=== PATIENT | male | born 1995 | race Hispanic/Latino ===

== ENCOUNTER 2025-01-09 09:43 | Emergency (ER) | payer OTHER, SELFPAY ==
[2025-01-09] MEDS ORDERED: MECLIZINE HCL 12.5 MG TAB ONE (10:43)
--- NOTE | 2025-01-09 13:36 | RAD REPORT ---
EXAM: CT Head Brain Wo Cont HISTORY: DIZZINESS COMPARISON: None TECHNIQUE: Multiple contiguous axial images were obtained for a CT of the brain without contrast. Sag ittal and coronal reformats were performed. One or more of the following dose reduction techniques were used: Automated exposure control, adjus tment of the mA and kV according to patient size, and iterative reconstruction. Unless otherwise specified, incidental findings do not require dedicated imaging follow-up. FINDINGS: No evidence of hydrocephalus, intracranial hemorrhage, or extra-axial fluid collection. The brain is normal in morphology. The calvarium is intact. The visualized paranasal sinuses and mastoid air cells are essentially clear . IMPRESSION: No evidence of acute intracranial abnormality.
[2025-01-09 13:40] LABS: Absolute Lymphocytes (CBC) 1.7 K/uL (0.7-4.9); Hematocrit 47.3 % (39.6-49.0); Hemoglobin 15.9 g/dL (13.6-17.9); MCH 28.4 pg (27.0-35.0); MCHC 33.5 g/dL (32.0-36.0); MCV 84.9 fL (80-100); MPV 8.4 fL (7.6-11.3); Nucleated RBC Absolute Count 0.0 (0-0); Nucleated Red Blood Cells % 0.1 % (0-0); RBC Red Blood Cell Count 5.58 M/uL (4.33-5.43); White Blood Count 5.70 thou/uL (4.3-10.9)
[2025-01-09 13:45] LABS: PT Prothrombin Time 12.3 SECONDS (10-13.0); Protime INR 1.09
[2025-01-09 13:53] LABS: Anion Gap 7.2 mEq/L (5.0-15.0); BUN Blood Urea Nitrogen 13.0 mg/dL (7-18); Glucose Level 109.0 mg/dL (74-106); Potassium 4.2 mEq/L (3.5-5.1)
[2025-01-09] MEDS ORDERED: PROMETHAZINE INJ 25 MG/ML AMP ONE (14:12)
--- NOTE | 2025-01-09 14:40 | RAD REPORT ---
EXAMINATION: CTA HEAD CLINICAL INDICATION: Male, 29 years old. dizziness, neck pain TECHNIQUE: Axial CT images were obtained through the head after intravenous contrast utilizing angiog raphic protocol with 3D post-processing (maximum intensity projection images, volume rendered images and/or shaded surface rendered images). One or more of the following dose reduction technique s were used: Automated exposure control, adjustment of the mA and/or kV according to patient size, and/or iterative reconstruction. Unless otherwise specified, incidental findings do not require dedic ated imaging follow-up. COMPARISON: No prior exam. FINDINGS: Mildly suboptimal contrast timing with venous contamination somewhat limits evaluation. ICA: The petrous, cavernous, and supraclinoid segments of the bilateral internal carotid arteries are normal. MISSY: Anterior cerebral arteries are normal bilaterally. The anterior communicating artery is patent. MCA: Middle cerebral arteries are normal bilaterally. DIRECTOR OF OUTPATIENT SERVICES: Posterior cerebral arteries are normal bilaterally. Vertebrobasilar: The vertebral arteries are patent. The basilar artery is normal in appearance. 3D images confirm these findings. IMPRESSION: No evidence of large vessel occlusion or hemodynamically significant stenosis.
--- NOTE | 2025-01-09 14:41 | RAD REPORT ---
EXAMINATION: CT Neck Angio CLINICAL INDICATION: Male, 29 years old. [facility] Dizziness, posterior head/neck pain Bed Name: 15 TECHNIQUE: Axial CT images were obtained from the aortic arch to the skull base after intravenous con trast utilizing angiographic protocol. Multiplanar reformats, as well as 3D post-processing (maximum intensity projection images, volume rendered images and/or shaded surface rendered images) w ere generated and reviewed. One or more of the following dose reduction techniques were used: Automated exposure control, adjustment of the mA and/or kV according to patient size, and/or iterativ e reconstruction. Unless otherwise specified, incidental findings do not require dedicated imaging follow-up. COMPARISON: No prior exam. FINDINGS: AORTA: The imaged aortic arch is normal. Normal three-vessel configuration of the arch. CCA: No artifact The common carotid arteries are patent and normal in caliber. ICA/ECA: Bilateral internal and external carotid arteries are patent. There is no significant interna l carotid artery stenosis. VERTEBRAL: The cervical vertebral arteries are patent to the skull base. Vertebral arteries are codom inant. SOFT TISSUE: No significant neck soft tissue abnormalities. The visualized lung apices are clear. 3D images confirm these findings. IMPRESSION: No significant flow abnormality of the neck vessels is identified. NASCET criteria used to quantify ICA stenosis, with the following grading scheme: Mild 0-49% stenosis Moderate 50-69% stenosis Severe 70-99% stenosis Reference: [place] Symptomatic Carotid Endarterectomy Trial Collaborators; Charlette EDWARD, Arelis STAPLETON, Dakota RB, et al. Beneficial effect of carotid endarterectomy in symptomatic patients with high-grade carotid stenosis. N Engl J Med. 1990Dec 30;325(7):445-53.
--- NOTE | 2025-01-09 14:59 | ER ---
Nurse's Notes [facility] Name: Raghav Chance Age: 29 yrs Sex: Male : 1995 Arrival Date: 01/09/2025 Time: 09:43 Bed 15 Private MD: Diagnosis: Benign paroxysmal vertigo, unspecified ear Presentation: 01/09 09:59 Chief complaint: Patient states: Fatigue since yesterday. Nausea and vomiting, dizzy, ll1 near syncope, started this AM. No fever. Coronavirus screen: Client denies travel out of the [place] in the last 14 days. diarrhea, fatigue, Client presents with at least one sign or symptom that may indicate coronavirus-19. Standard/surgical mask placed on the client. Ebola Screen: Patient denies travel to an Ebola-affected area in the 21 days before illness onset. Initial Sepsis Screen: Does the patient meet any 2 criteria? No. Patient's initial sepsis screen is negative. Does the patient have a suspected source of infection? No. Patient's initial sepsis screen is negative. Risk Assessment: Do you want to hurt yourself or someone else? Patient reports no desire to harm self or others. Onset of symptoms was January 08, 2025. 09:59 Method Of Arrival: Ambulatory ll1 09:59 Acuity: CHASE 3 ll1 Triage Assessment: 09:59 General: Appears uncomfortable, Behavior is calm, cooperative, appropriate for age. ll1 Pain: Complains of pain in abdomen. Neuro: Reports dizziness, a syncopal episode weakness. GI: Reports cramping, nausea, vomiting. Historical: - Allergies: 09:58 No Known Allergies; ll1 - PMHx: 09:58 None; ll1 - PSHx: 09:58 None; ll1 - Immunization history:: Adult Immunizations up to date. - Infectious Disease History:: Denies. - Social history:: Smoking status: Patient denies any tobacco usage or history of. Screenin:08 [facility] ED Fall Risk Assessment (Adult) History of falling in the last 3 months, bp including since admission No falls in past 3 months (0 pts) Confusion or Disorientation No (0 pts) Intoxicated or Sedated No (0 pts) Impaired Gait No (0 pts) Mobility Assist Device Used No (0 pt) Altered Elimination No (0 pt) Score/Fall Risk Level 0 - 2 = Low Risk Oriented to surroundings. Abuse screen: Denies threats or abuse. Denies injuries from another. Nutritional screening: No deficits noted. Tuberculosis screening: No symptoms or risk factors identified. Assessment: 10:00 General: Appears in no apparent distress. Behavior is cooperative, appropriate for age, bp anxious. Pain: Denies pain. Neuro: Level of Consciousness is awake, alert, obeys commands, Oriented to Appropriate for age. Cardiovascular: No deficits noted. Respiratory: No deficits noted. GI: Abdomen is non-distended. : No signs and/or symptoms were reported regarding the genitourinary system. EENT: No deficits noted. Derm: No deficits noted. Musculoskeletal: No deficits noted. 13:07 Reassessment: No changes from previously documented assessment. Patient is alert, bp oriented x 3, equal unlabored respirations, skin warm/dry/pink. Vital Signs: 09:59 BP 112 / 85; Pulse 66; Resp 17; Temp 97.4; Pulse Ox 100% ; Weight 86.18 kg; Height 5 ll1 ft. 9 in. ; Pain 9/10; 13:06 BP 102 / 79; Pulse 60; Resp 16; Pulse Ox 100% ; bp 14:19 BP 116 / 71; Pulse 53; Resp 16; Pulse Ox 100% on R/A; ar8 15:00 BP 112 / 67; Pulse 75; Resp 16; Pulse Ox 99% on R/A; ar8 09:59 Body Mass Index 28.06 (86.18 kg, 175.26 cm) ll1 09:59 Pain Scale: Adult ll1 NIH Stroke Scale Scores: 10:15 NIHSS Score: 0 ms3 ED Course: 09:45 Patient arrived in ED. al6 09:50 Arnulfo Palencia DO is Attending Physician. ms3 09:50 Erica Gómez PA-C is PHCP. sb4 10:00 Triage completed. ll1 10:08 Steve Zabala, RN is Primary Nurse. ar8 10:09 Arm band placed on Patient placed in an exam room, on a stretcher. ll1 12:49 CT Head Brain wo Cont In Process Unspecified. EDMS 13:03 Inserted saline lock: 20 gauge in right antecubital area, using aseptic technique. bp Blood collected. Flushed with 10 mL NS. 13:08 Patient has correct armband on for positive identification. bp 13:51 CT Head Angio In Process Unspecified. EDMS 13:52 CT Neck Angio In Process Unspecified. EDMS 14:58 Alvin Arechiga MD is Referral Physician. ms3 15:15 No provider procedures requiring assistance completed. IV discontinued, intact, ar8 bleeding controlled, No redness/swelling at site. Pressure dressing applied. Administered Medications: 10:47 Drug: Meclizine PO 50 mg PO once Route: PO; ar8 12:00 Follow up: Response: No adverse reaction ar8 14:18 Drug: Promethazine IM 12.5 mg IM once Route: IM; Site: right ventrogluteal; ar8 15:15 Follow up: Response: No adverse reaction ar8 Medication: 15:15 VIS not applicable for this client. ar8 Outcome: 14:59 Discharge ordered by . ms3 15:15 Discharged to home ambulatory, ar8 15:15 Condition: stable 15:15 Discharge instructions given to patient, significant other, Instructed on discharge instructions, follow up and referral plans. medication usage, Demonstrated understanding of instructions, follow-up care, medications, Prescriptions given X 1, 15:16 Patient left the ED. ar8 NIH Stroke Scale - NIH Stroke Score Date: 01/09/2025 Time: 10:15 Total Score = 0 10. Dysarthria (speech clarity - read or repeat words) - 0(Normal) 11. Extinction and Inattention (visual/tactile/auditory/spatial/personal) - 0(No abnormality) 1a. Level of Consciousness (LOC) - 0(Alert) 1b. Level of Consciousness (LOC) (Month \T\ Age) - 0(Both) 1c. LOC Commands (Open \T\ Closes Eyes/Plush Weaver) - 0(Both) 2. Best Gaze (Lateral Gaze Paresis) - 0(Normal) 3. Visual Field Loss - 0(No visual loss) 4. Facial Palsy - 0(Normal) 5a. Left Arm: Motor (10-second hold) - 0(No drift) 5b. Right Arm: Motor (10-second hold) - 0(No drift) 6a. Left Leg: Motor (5-second hold - always test supine) - 0(No drift) 6b. Right Leg: Motor (5-second hold - always test supine) - 0(No drift) 7. Limb Ataxia (finger/nose \T\ heel/damico - test with eyes open) - 0(Absent) 8. Sensory Loss (pinprick arms/legs/face) - 0(Normal) 9. Best Language: Aphasia (description/naming/reading) - 0(No aphasia) Initials: ms3 Signatures: Dispatcher [employer] EDHeriberto Way, RN RN bp Liz Pollard RN RN ll1 Arnulfo Palencia, DO ms3 Erica Gómez PA-C PA-C sb4 Kay Rg al6 Steve Zabala RN RN ar8 Corrections: (The following items were deleted from the chart) 09:58 09:58 Allergies: Tetanus Vaccines \T\ Toxoid; ll1 ll1
--- NOTE | 2025-01-09 15:00 | EDPHYS ---
Physician Documentation [facility] Name: Raghav Chance Age: 29 yrs Sex: Male : 1995 Arrival Date: 01/09/2025 Time: 09:43 Bed 15 Private MD: ED Physician Arnulfo Palencia HPI: 01/09 10:15 This 29 yrs old Male presents to ER via Ambulatory with complaints of ms3 Dizziness, Vomiting. 10:15 29-year-old male with no past medical history presents to the emergency department for ms3 awaking with dizziness and the room spinning. Patient endorses nausea and vomiting. Patient states his symptoms are worse with head movement. He denies any alleviating factors.. Historical: - Allergies: 09:58 No Known Allergies; ll1 - PMHx: :58 None; ll1 - PSHx: :58 None; ll1 - Immunization history:: Adult Immunizations up to date. - Infectious Disease History:: Denies. - Social history:: Smoking status: Patient denies any tobacco usage or history of. ROS: 10:15 Constitutional: Negative for fever, and chills. Cardiovascular: Negative for chest ms3 pain, and palpitations. Respiratory: Negative for shortness of breath, cough, wheezing, and pleuritic chest pain, 10:15 MS/Extremity: Negative for injury and deformity, Skin: Negative for injury, rash, and discoloration, 10:15 Abdomen/GI: Positive for nausea and vomiting, 10:15 Neuro: Positive for dizziness, Exam: 10:15 Constitutional: This is a well developed, well nourished patient who is awake, alert, ms3 and in no acute distress. Cardiovascular: Regular rate and rhythm with a normal S1 and S2. No gallops, murmurs, or rubs. Normal PMI, no JVD. No pulse deficits. Respiratory: Lungs have equal breath sounds bilaterally, clear to auscultation and percussion. No rales, rhonchi or wheezes noted. No increased work of breathing, no retractions or nasal flaring. Abdomen/GI: Soft, non-tender, with normal bowel sounds. No distension or tympany. No guarding or rebound. No evidence of tenderness throughout. Skin: Warm, dry with normal turgor. Normal color with no rashes, no lesions, and no evidence of cellulitis. MS/ Extremity: Pulses equal, no cyanosis. Neurovascular intact. Full, normal range of motion. Neuro: Awake and alert, GCS 15, oriented to person, place, time, and situation. Cranial nerves II-XII grossly intact. Motor strength 5/5 in all extremities. Sensory grossly intact. Cerebellar exam normal. Normal gait. Vital Signs: 09:59 BP 112 / 85; Pulse 66; Resp 17; Temp 97.4; Pulse Ox 100% ; Weight 86.18 kg; Height 5 ll1 ft. 9 in. ; Pain 9/10; 13:06 BP 102 / 79; Pulse 60; Resp 16; Pulse Ox 100% ; bp 14:19 BP 116 / 71; Pulse 53; Resp 16; Pulse Ox 100% on R/A; ar8 15:00 BP 112 / 67; Pulse 75; Resp 16; Pulse Ox 99% on R/A; ar8 09:59 Body Mass Index 28.06 (86.18 kg, 175.26 cm) ll1 09:59 Pain Scale: Adult ll1 NIH Stroke Scale Scores: 10:15 NIHSS Score: 0 ms3 MDM: 09:54 Medical Screening Exam initiated ms3 10:15 Differential diagnosis: cardiac arrhythmia, generalized weakness, idiopathic dizziness, ms3 vertigo. 13:31 ED course: On re-evaluation patient complaining of posterior head/ neck pain. Will ms3 obtain CTA head and neck for possible vertebral artery dissection. Patient states dizziness remains worse with head movement.. 16:08 Data reviewed: vital signs, nurses notes, lab test result(s), radiologic studies, and ms3 as a result, I will discharge patient. I considered the following discharge prescriptions or medication management in the emergency department Medications were administered in the Emergency Department. See MAR. Independent interpretation of the following test(s) in the Emergency Department EKG: See my EKG interpretation above CT Scan: My interpretation is CT head without contrast images reviewed did not reveal intracranial hemorrhage. Counseling: I had a detailed discussion with the patient and/or guardian regarding the historical points, exam findings, and any diagnostic results supporting the discharge/admit diagnosis, lab results, radiology results, the need for outpatient follow up, to return to the emergency department if symptoms worsen or persist or if there are any questions or concerns that arise at home. ED course: Discussed labs and imaging with patient. Patient to follow-up with Dr. Arechiga in 2 to 3 days. Patient understands and agrees with plan. All questions were answered. Return precautions were discussed to include worsening symptoms, or any other concerns. On reevaluation patient remains neurologically intact, patient states his symptoms have improved, patient is ambulatory in the emergency department, in no apparent distress, nontoxic-appearing, alert and oriented x 4. 01/09 10:13 Order name: Glucose, Ancillary Testing; Complete Time: 11:13 EDMS 01/09 12:38 Order name: CBC with Diff; Complete Time: 13:56 ms3 01/09 12:38 Order name: BMP; Complete Time: 13:56 ms3 01/09 12:38 Order name: PT-INR; Complete Time: 13:56 ms3 01/09 12:38 Order name: CT Head Brain wo Cont; Complete Time: 13:56 ms3 01/09 13:31 Order name: CT Head Angio; Complete Time: 14:48 ms3 01/09 13:31 Order name: CT Neck Angio; Complete Time: 14:48 ms3 Administered Medications: 10:47 Drug: Meclizine PO 50 mg PO once Route: PO; ar8 12:00 Follow up: Response: No adverse reaction ar8 14:18 Drug: Promethazine IM 12.5 mg IM once Route: IM; Site: right ventrogluteal; ar8 15:15 Follow up: Response: No adverse reaction ar8 Disposition Summary: 01/09/25 14:59 Discharge Ordered Notes: Location: Home ms3 Condition: Stable ms3 Diagnosis - Benign paroxysmal vertigo, unspecified ear ms3 Followup: ms3 - With: Alvin Arechiga MD - When: 2 - 3 days - Reason: Recheck today's complaints Discharge Instructions: - Discharge Summary Sheet ms3 - Benign Positional Vertigo ms3 Forms: - Medication Reconciliation Form ms3 - Antibiotic Education ms3 - Prescription Opioid Use ms3 - Patient Portal Instructions ms3 - Leadership Thank You Letter ms3 Prescriptions: - Meclizine 25 mg Oral Tablet - take 1 tablet ORAL route every 8 hours As needed; 30 tablet; Refills: 0, ms3 Product Selection Permitted NIH Stroke Scale - NIH Stroke Score Date: 01/09/2025 Time: 10:15 Total Score = 0 10. Dysarthria (speech clarity - read or repeat words) - 0(Normal) 11. Extinction and Inattention (visual/tactile/auditory/spatial/personal) - 0(No abnormality) 1a. Level of Consciousness (LOC) - 0(Alert) 1b. Level of Consciousness (LOC) (Month \T\ Age) - 0(Both) 1c. LOC Commands (Open \T\ Closes Eyes/House Calls Nurse) - 0(Both) 2. Best Gaze (Lateral Gaze Paresis) - 0(Normal) 3. Visual Field Loss - 0(No visual loss) 4. Facial Palsy - 0(Normal) 5a. Left Arm: Motor (10-second hold) - 0(No drift) 5b. Right Arm: Motor (10-second hold) - 0(No drift) 6a. Left Leg: Motor (5-second hold - always test supine) - 0(No drift) 6b. Right Leg: Motor (5-second hold - always test supine) - 0(No drift) 7. Limb Ataxia (finger/nose \T\ heel/damico - test with eyes open) - 0(Absent) 8. Sensory Loss (pinprick arms/legs/face) - 0(Normal) 9. Best Language: Aphasia (description/naming/reading) - 0(No aphasia) Initials: ms3 Signatures: Dispatcher [employer] EDMS Liz Pollard, RN RN ll1 Arnulfo Palencia DO DO ms3 Steve Zabala, RN RN ar8 Corrections: (The following items were deleted from the chart) 09:58 09:58 Allergies: Tetanus Vaccines \T\ Toxoid; 1 ll1 12:38 12:38 CBC+H.LAB.BRZ ordered. EDMS EDMS 12:38 12:38 BASIC METABOLIC PANEL+C.LAB.BRZ ordered. EDMS EDMS 12:38 12:38 PROTIME (+INR)+COAG.LAB.BRZ ordered. EDMS EDMS
[2025-01-09 18:02] VITALS: TEMP 97.4
[2025-01-09 18:18] VITALS: BP 112/67; O2SAT 99
== END 2025-01-09 15:16 | disposition home or self-care (01) ==
LOC: ER 09:43
DX: H81.10 Benign paroxysmal vertigo, unspecified ear (principal)
CPT/HCPCS: 36415; 70450; 70496; 70498; 80048; 82947; 85025; 85610; J2550; J8597; Q9967